=== PATIENT | female | born 1940 | race Caucasian/White ===

== ENCOUNTER 2018-09-09 19:39 | Observation (INO) | payer MEDICARE, BC ==
[~2018-09-09 19:39] MED LIST: Iopamidol 300 61% 100 ML VIAL FS ONE
[2018-09-09] MEDS ORDERED: Famotidine/PF 20 mg/2ml Vial ONE (20:22)
[2018-09-09] MEDS ORDERED: Ondansetron PF 4 MG/2 ML Vial ONE (20:22)
[2018-09-09 20:30] LABS: Base Excess-Venous 2.1 mmol/L (-2.0 to 3.0); Bicarbonate (HCO3v) 27.6 mmol/L (22.0-28.0); CO2 Tension (PvCO2) 44.5 mmHg (40.0-50.0); Calcium, Ionized 1.11 mmol/L (See Comments:); Chloride 93 mmol/L (98-107); Hemoglobin - Calc 17.5 g/dL (12.0-16.0); Potassium 4.2 mmol/L (3.5-5.1); Sodium 128 mmol/L (138-145); T. Carbon Dioxide 28.9 mmol/L (22.0-28.0); vO2 Saturation-calc 96.1 % (60.0-85.0)
[2018-09-09 20:32] LABS: ALT (SGPT) 18 U/L (8-55); AST (SGOT) 14 U/L (5-34); Albumin 4.4 g/dL (3.4-4.8); Alkaline Phosphatase 126 U/L (40-150); Anion Gap 21 mmol/L (10-20); BUN (Urea Nitrogen) 10 mg/dL (9.8-20.1); Bilirubin, Total 0.4 mg/dL (0.2-1.2); Calc. Creatinine Clearance 0 mL/min (70-130); Calcium 9.9 mg/dL (7.8-10.44); Carbon Dioxide 24 mmol/L (23-31); Chloride 89 mmol/L (98-107); Estimated GFR-MDRD 66; Globulin 3.4 g/dL (2.4-3.5); Glucose 492 mg/dL (83-110); Potassium 4.3 mmol/L (3.5-5.1); Protein, Total 7.8 g/dL (6.0-8.3); Sodium 130 mmol/L (136-145)
[2018-09-09 20:36] LABS: Bilirubin Moderate (Negative); Blood, Urine Negative (Negative); Clarity Slightly Cloudy (Clear); Glucose, Urine (Dipstick) >=1000 mg/dL (Negative); Leukocyte Negative (Negative); Nitrite Negative (Negative); Protein, Urine (Dipstick) Negative (Neg-Trace); Specific Gravity, Urine 1.029 (1.002-1.036); Urobilinogen 0.2 mg/dL (0.2-1.0); pH, Urine 5.5 (5.0-9.0)
[2018-09-09 20:42] LABS: Band 1 % (5-11); Eosinophils 3 % (0-10); Hemoglobin 16.3 g/dL (12.0-16.0); Lymphocytes 22 % (21-51); MDiff Complete? YES; Mean Corpuscular HGB CONC 35.4 g/dL (32.0-36.0); Mean Corpuscular Hemoglobin 30.5 pg (27.0-31.0); Mean Corpuscular Volume 86.2 fL (78.0-98.0); Mean Platelet Volume 6.5 fL (7.4-10.4); Monocytes 24 % (0-10); Neutrophil 50 % (42-75); Platelet Count 333 thou/uL (130-400); Platelet Morphology Comment Appears Adequate; RBC Distribution Width 11.6 % (11.5-14.5); Red Blood Cell (RBC) Count 5.35 mill/uL (4.20-5.40)
--- NOTE | 2018-09-09 21:00 | RAD ---
TWO VIEW CHEST: 09/09/18 HISTORY: Epigastric pain. No comparison. There is scattered nodular opacity seen throughout both lungs, more prominent in the upper lung field s bilaterally. There is a 3.5 cm nodular opacity in the right peripheral mid lung field which shows e vidence of cavitation with possible air fluid level. Heart size is normal. Vasculature normal. No effusion. Osseous structures are unremarkable. IMPRESSION: Bilateral pulmonary nodular opacities seen more prominent in the upper lung ziegler. A larger nodule i n the peripheral right mid lung appears to represent a cavitary mass with possible air fluid level. R ecommend further evaluation with chest CT. POS: SYED
[2018-09-09] MEDS ORDERED: Insulin Regular 300 UNITS/3 ML VIAL ONE (21:21)
--- NOTE | 2018-09-09 22:10 | CT ---
CT CHEST, ABDOMEN AND PELVIS WITH IV CONTRAST: 09/09/18 Multiple axial tomograms were obtained through the chest, abdomen and pelvis with IV enhancement. INDICATIONS: Follow-up chest x-ray which showed an atypical nodular infiltrate in both upper lobes with a larger cavitary nodule in the right lung. FINDINGS: CT again confirms numerous nodules in the upper lobes. These are more numerous in the right upper lob e and are too numerous to count. There is some reticular prominence indicating a reticulonodular proc ess possibly an typical infectious process. There is a large cavitary lesion in the right peripheral lung, right upper lobe abutting the fissure. This measures up to 3.3 cm. There is no evidence of air fluid level, which was questioned on the plain film. The lower lobes show a few scattered nodular opacities. Mediastinum unremarkable. IMPRESSION: Nodular infiltrative process in both upper lobes, more pronounced on the right. A large cavitary mass in the peripheral right lung. A few scattered nodular opacities in the lower lobes. TB and other gra nulomatous infection should be excluded. CT ABDOMEN AND PELVIS: Liver, spleen, and pancreas unremarkable. Adrenal glands and kidneys unremarkable. Small bowel loops normal caliber. Large amount of stool throughout the colon suggests constipation. Aorta normal caliber. Urinary bladd er unremarkable. IMPRESSION: Large amount of stool throughout the colon suggests chronic constipation. No evidence of acute intra- abdominal process. POS: YADIRA
[2018-09-10 00:13] VITALS: BMI 20.1
--- NOTE | 2018-09-10 00:27 | PDOC.FPRHP ---
- History of Present Illness Chief Complaint: Abdominal pain History of Present Illness: This is a 77 yo female with a pmh of IDDM, seizures who presents as a direct admit from [facility] for abdominal pain. The pain is epigastric with radiation to her back. She reports having the pain for 2 hours and went a way for a while but ultimately returned. She reports nausea with one episode of emesis. She denies SOB, diaphoresis, dysuria, weakness, or numbness. She reports weight loss of 100 lbs in the last year with a diagnosis of DM 6 months ago with an A1c of 13.6. She also reports right sided chest wall pain. She states it is primarily posterior mid chest. ED Course: Humulin 5.5 units IV push 2L bolus NS pepcid 20mg zofran - Allergies/Adverse Reactions Allergies Allergy/AdvReac Type Severity Reaction Status Date / Time No Known Allergies Allergy Verified 09/10/18 00:21 - Home Medications Medication Instructions Recorded Confirmed Type Insulin Glargine,Hum.Rec.Anlog 25 units SQ DAILY 09/10/18 09/10/18 History [Lantus] Phenytoin Sodium Extended 600 mg PO DAILY 09/10/18 09/10/18 History [Dilantin ER] - History PMHx: IDDM, seizures, PSHx: Appendectomy, cholecstecotmy FHx: none contributory Social: Denies EZEKIEL - Review of Systems General: reports: weight/appetite/sleep changes. denies: fever/chills, night sweats, fatigue Eyes: denies: eye pain, vision changes ENT: denies: nasal congestion, rhinorrhea Respiratory: denies: cough, shortness of breath, exercise intolerance Cardiovascular: reports: chest pain (on her right posterior rib cage). denies: palpitation, edema Gastrointestinal: reports: constipation. denies: nausea, vomiting, diarrhea, GI bleeding Genitourinary: reports: polyuria. denies: incontinence, dysuria Skin: denies: rashes, lesions Musculoskeletal: denies: pain, tenderness Neurological: denies: numbness, syncope, seizure Psychological: denies: anxiety, depression - Vital signs BP: 114/72 HR: 103 RR: 20 Tmax: 98.3 Pox: 94% on ra Wt: 56kg - Physical Exam Constitutional: NAD, awake, alert and oriented, other (cachetic) HEENT: normocephalic and atraumatic, PERRLA, EOMI, grossly normal vision, TM's clear and intact, grossly normal hearing, MMM Neck: FROM, trachea midline Chest: no-tender to palpation, no lesions Heart: RRR, normal S1/S2, no murmurs/rubs/gallops, pulses present Lungs: CTAB, no respiratory distress, good air movement, no wheezing, no retractions Abdomen: soft, bowel sounds present, no masses/distention -Abdomen: Tenderness to epigastic region Musculoskeletal: normal structure, normal tone, ROM grossly normal Neurological: CN II-XII intact, normal sensation Skin: good turgor, capillary refill <2 seconds Heme/Lymphatic: no unusual bruising or bleeding Psychiatric: normal mood and affect, intact recent and remote memory FMR H&P: Results - Labs Result Diagrams: 09/09/18 20:05 09/10/18 05:24 Lab results: WBC 9.0 thou/uL (4.8-10.8) 09/09/18 20:05 Hgb 16.3 g/dL (12.0-16.0) H 09/09/18 20:05 Hct 46.1 % (36.0-47.0) 09/09/18 20:05 MCV 86.2 fL (78.0-98.0) 09/09/18 20:05 Plt Count 333 thou/uL (130-400) 09/09/18 20:05 Band Neuts % (Manual) 1 % (5-11) L 09/09/18 20:05 VBG pCO2 44.5 mmHg (40.0-50.0) 09/09/18 20:05 VBG pO2 83.0 mmHg (35.0-45.0) H 09/09/18 20:05 Sodium 130 mmol/L (136-145) L 09/09/18 20:05 Potassium 4.3 mmol/L (3.5-5.1) 09/09/18 20:05 Chloride 89 mmol/L (98-107) L 09/09/18 20:05 Carbon Dioxide 24 mmol/L (23-31) 09/09/18 20:05 BUN 10 mg/dL (9.8-20.1) 09/09/18 20:05 Creatinine 0.84 mg/dL (0.6-1.1) 09/09/18 20:05 Glucose 492 mg/dL (83-110) H 09/09/18 20:05 Lactic Acid 0.9 mmol/L (0.5-2.2) 09/09/18 20:05 Calcium 9.9 mg/dL (7.8-10.44) 09/09/18 20:05 Total Bilirubin 0.4 mg/dL (0.2-1.2) 09/09/18 20:05 AST 14 U/L (5-34) 09/09/18 20:05 ALT 18 U/L (8-55) 09/09/18 20:05 Alkaline Phosphatase 126 U/L (40-150) 09/09/18 20:05 Serum Total Protein 7.8 g/dL (6.0-8.3) 09/09/18 20:05 Albumin 4.4 g/dL (3.4-4.8) 09/09/18 20:05 Lipase 15 U/L (8-78) 09/09/18 20:05 Urine Ketones 40 mg/dL (Negative) H 09/09/18 20:25 Urine Blood Negative (Negative) 09/09/18 20:25 Urine Nitrite Negative (Negative) 09/09/18 20:25 Ur Leukocyte Esterase Negative (Negative) 09/09/18 20:25 - Radiology Interpretation CT scan - chest Status: image reviewed by me, report reviewed by me (Nodular infiltrative process in both upper lobes, more pronounced on the right. A large cavitary mass in the peripheral right lung. A few scattered nodular opacities in the lower lobes. TB and other granulomatous infection should be excluded.) CT scan - abdomen Status: report reviewed by me (Large amount of stool throughout the colon suggests chronic constipation. No evidence of acute intra-abdominal process.) Chest x-ray Status: report reviewed by me (Bilateral pulmonary nodular opacities seen more prominent in the upper lung ziegler. A larger nodule in the peripheral right mid lung appears to represent a cavitary mass with possible air fluid level. Recommend further evaluation with chest CT) FMR H&P: A/P - Problem List (1) DM (diabetes mellitus) Current Visit: Yes Status: Acute Code(s): E11.9 - TYPE 2 DIABETES MELLITUS WITHOUT COMPLICATIONS (2) Hyponatremia Current Visit: Yes Status: Acute Code(s): E87.1 - HYPO-OSMOLALITY AND HYPONATREMIA (3) Concern about pulmonary TB without diagnosis Current Visit: Yes Status: Acute Code(s): Z71.1 - PERSON W FEARED HLTH COMPLAINT IN WHOM NO DIAGNOSIS IS MADE - Plan Diabetes Mellitus, late onset -Admit to medical -Pending A1c and C-peptide to further define diagnosis -Continue home levemir and titrate to BG 140-180 -ACHS glu checks -SSI Chest/abdominal pain -Lipase 15, troponin negative x1 -CT chest shows nodular inflitrative process in both upper lobes, more on the right. A large cavitary mass in the peripheral right lung. A few scattered nodular opacities in the lower lobes -Concerning for TB, Pending AFB culture and smear, quant gold -Consult pulmonology in the morning Protein-calorie malnutrition -100lbs weight loss in 1 year -Concerning for TB vs cancer vs new onset DM -Consult dietitian Pseudohyponatremia -Corrected to 136 Ketosis without change in pH or bicarb -Likely starvation ketosis -Supplement and IV hydrate Code: full Prophylaxis: SCDs Family: none at bedside Fluids: LR 100ml/hr Diet: CC Disposition: home in 1-2 days PCP: Deangelo RODRIGUEZ FMR H&P: Upper Level - Plan Date/Time: 09/10/18 0025 Fe Negron. Zander Mac MD, have evaluated this patient and agree with findings/plan as outlined by recording studio intern resident. Pertinent changes/additions are listed here. 77 y/o F w/ IDDM who was started on insulin approx. 6 months ago by her PCP in [place] presents as a direct admit from [facility]. Pt initially presented for eval of abdominal earlier today in her upper mid abdomen w/ radiation into her back w / associated nausea and emesis x1. Pt reported taking 25 units of lantus at home. Reports abdominal pain and nausea improved significantly after administration of meds at [facility]. Pt reports 100 lbs weight loss approx. 1 years ago before dx w/ DM. Reports A1c was [address] scan of patients chest /A/P obtained showing 3.3 cm R-peripheral lung cavitary lesion w/ numerous nodules in the upper lobes R>L. Was also found to have a large amount of stool throughout her colon suggestive of chronic constipation. Vitals per recording studio intern note WBC 9.0 Hgb 16.3 Monocytes 24% VBG 7.4/44.5/83/27.6 Na 130 Chl 89 Bicarb 24 Glucose 492 Beta hydroxybutyrate 3.46 CXR B/l pulmonary nodular opacities CT Chest/Abdomen/Pelvis 3.3 cm R-peripheral lung cavitary lesion w/ numerous nodules in the upper lobes R>L. Large amount of stool throughout the colon PE: Cachetic appearing, NAD Small 1 cm round callus medial aspect of plantar surface of L-foot Mild epigastric tenderness to palpation 77 y/o F w/: 1. Cavitary Lung Nodule (DDx TB vs malignancy vs other) - Pt w/ incidental finding of cavitary lung nodule on CT. She has not had any incarceration, known contacts, foreign travel which would put her at a higher risk for this - Will place in negative pressure room w/ droplet percautions - Obtain Quantiferon Gold and AFB sputum stain - Plan to consult pulmonology in the AM for further eval 2. Uncontrolled DM - Will restart patient on her home lantus w/ SSI and adjust as needed - Pt w/ significant weight loss and likely elevated B-hb from starvation ketoacidosis as her bicarb is >24 and with normal VBG. Do not feel this is true DKA at this time. - Will treat w/ sub-q insulin and repeat b-hb in the AM w/ q4 hr BMPs w/ IVF resuscitation - Strict I/Os to monitor fluid status - Pt did have significant weight loss prior to diabetes dx which would be unusual for a T2DM patient. Will check a c-peptide to further eval possible adult onset T1DM 3. Polycythemia - Possible 2/2 decreased volume status in setting of #2 - Will repeat in the AM after IVF, if still elevated will perform further work- up for etiology 4. Constipation - Will have patient on bowel regimen while inpatient 5. Other chronic medical problems per recording studio intern note Addendum - Attending - Attending Attestation Date/Time: 09/10/18 4020 I personally evaluated the patient and discussed the management with Dr. Mccarthy /Estefania. I agree with the History, Examination, Assessment and Plan documented above with any addition or exceptions noted below. Patient here with uncontrolled DM and large amount of weight loss with associated pleuritic type chest pain. She is cachectic appearing. Labs show severe hyperglycemia and ketosis without ketoacidosis. CT chest shows necrotic material R chest. Patient being admitted for necrotizing infection with need to rule out TB and/or malignancy, as well as uncontrolled DM. Pulm consultation. Will need escalation of DM therapy. IV hydration. Testing for TB and fungal causes of necrotic pneumonia.
[2018-09-10] MEDS ORDERED: HumaLOG 300 UNITS/3 ML VIAL SC PRN (01:32)
[2018-09-10] MEDS ORDERED: Dextrose 50% Abboject 50 ML SYRINGE SLOW IVP PRN (01:32)
[2018-09-10] MEDS ORDERED: Ondansetron PF 4 MG/2 ML Vial IVP PRN (01:32)
[2018-09-10] MEDS ORDERED: Dextrose 5% in Water 1,000 ML IV PRN (01:32)
[2018-09-10] MEDS ORDERED: Acetaminophen 650 MG Suppository PR PRN (01:32)
[2018-09-10] MEDS: Lactated Ringer's 1,000 ML IV SCH ×3 (02:55→19:46)
[2018-09-10] MEDS ORDERED: Insulin Glargine 25 UNITS in Pre-Filled Syringe 1 EACH SC SCH ×2 (03:00→09:00)
[2018-09-10] MEDS: Ondansetron ODT 4 MG TAB PO PRN ×2 (04:09→10:16)
[2018-09-10] MEDS: Acetaminophen 325 MG TAB PO PRN ×2 (04:09→18:34)
[2018-09-10] MEDS: HumaLOG 300 UNITS/3 ML VIAL SC PRN ×3 (05:43→17:28)
[2018-09-10 06:16] LABS: Anion Gap 13 mmol/L (10-20); BUN (Urea Nitrogen) 7 mg/dL (9.8-20.1); Calc. Creatinine Clearance 70 mL/min (70-130); Calcium 8.6 mg/dL (7.8-10.44); Carbon Dioxide 26 mmol/L (23-31); Chloride 97 mmol/L (98-107); Estimated GFR-MDRD Greater than 90; Glucose 271 mg/dL (83-110); Potassium 3.7 mmol/L (3.5-5.1); Sodium 132 mmol/L (136-145)
[2018-09-10] MEDS: Senokot 8.6 MG TAB PO SCH ×2 (07:58→19:44)
[2018-09-10] MEDS: Polyethylene Glycol 3350 17 GM Packet PO SCH (07:58)
[2018-09-10] MEDS ORDERED: Sodium Chloride 3% (15 ML) NEB NEB SCH (10:00)
--- NOTE | 2018-09-10 11:12 | CON ---
DATE OF CONSULTATION: 09/10/2018 SERVICE: Pulmonary Medicine. REASON FOR CONSULTATION: Cavitary lesion. HISTORY OF PRESENT ILLNESS: The patient is a 77-year-old white female with past medical history significant for over 250 pounds weight loss over a several year. She presented to the emergency department because of some abdominal discomfort. She denies any current fevers or chills. She is not having any night sweats. She denies having any cough or sputum production. She does not have any shortness of breath. The abdominal discomfort radiated into her back. It lasted for about 2 hours and ultimately went away before it came back once again. It was associated with nausea and one episode of vomiting. She did not vomit up any blood. She denies any arthralgias or vomiting. She has had a lack of appetite over these past several years. She denies having specific hyperphagia or polydipsia recently. PAST MEDICAL HISTORY: 1. Diabetes mellitus. 2. History of seizure disorder. PAST SURGICAL HISTORY: 1. Appendectomy. 2. Cholecystectomy. FAMILY HISTORY: Noncontributory. SOCIAL HISTORY: Negative for significant alcohol, tobacco, or illicit drug use. She denies any exposures to chemicals, dust, asbestos, or tuberculosis. ALLERGIES: NO KNOWN DRUG ALLERGIES. MEDICATIONS: List of her inpatient medications was reviewed. No specific updates were made at this time. REVIEW OF SYSTEMS: General; head, ears, eyes, nose, throat; cardiovascular; respiratory; GI; ; musculoskeletal; neurologic; and skin are negative except as mentioned in the HPI. PHYSICAL EXAMINATION: VITAL SIGNS: Afebrile, pulse 84, blood pressure 113/62, respirations 16, and saturation 93% on room air. GENERAL: The patient is awake and alert, in no apparent distress. LUNGS: Decent air entry. There is a minimally prolonged expiratory phase. Rhonchi are noted. No wheezing or crackles are appreciated. HEART: Normal rate and regular. ABDOMEN: Soft, nontender, and nondistended. Bowel sounds are positive. MUSCULOSKELETAL: No cyanosis or clubbing. There is no pitting in the bilateral lower extremities. NEUROLOGIC: Grossly nonfocal. LABORATORY DATA: WBC 9.0, hemoglobin 16.3, platelets 333,000. Neutrophil count is 50%, monocyte count is 24%, lymphocytes 22%. Eosinophils comprise 3% of the cell type. D-dimer is below the assay limit of 0.27. A pH 7.4, pCO2 of 45. Basic metabolic profile, troponin, ionized calcium, liver function studies are essentially unremarkable. Lipase is also normal. Lactate is negative x1. Hemoglobin A1c 17.0. IMAGING STUDIES: CT of the chest demonstrates chronic constipation without acute intra-abdominal process. No mediastinal lymphadenopathy is appreciated. She has a cavitary mass in the right upper lobe with tree-in-bud opacifications throughout. ASSESSMENT: 1. Cavitary mass. 2. Pulmonary infiltrate, characterized by tree-in-bud opacifications, predominantly bilateral upper lobes. 3. Profound weight loss. 4. Type 2 diabetes mellitus, under very poor control. DISCUSSION AND PLAN: Since she is not making any sputum, we will induce a sputum with 3% hypertonic saline and physiotherapy with a nebulized bronchodilator. If we cannot generate an acceptable sputum sample, we will move forward with bronchoscopy in the morning. I will make her n.p.o. after midnight in case we do not generate a good sputum sample. I agree with the isolation precautions. I will send off a rheumatoid factor, ANCA, and HIV. Pulmonary/Critical Care will continue to follow along. 70 minutes have been devoted to this patient in various activities. I personally reviewed all imaging studies and laboratory data noted within this document. For fifty percent of this time, I was interacting with the patient at the bedside or coordinating care with the care team. For the remainder of the time I was immediately available to the patient in the hospital unit. Job ID: [id number] MTDD
[2018-09-10 11:45] LABS: HIV (1/2) Antibody/Antigen Non-Reactive (NonReactive); HIV 1/2 INDEX 0.15 S/CO (<1.00)
[2018-09-11] MEDS ORDERED: Insulin Glargine 35 UNITS in Pre-Filled Syringe 1 EACH SC SCH (07:11)
--- NOTE | 2018-09-11 07:18 | PDOC.FM ---
- Subjective Subjective: pt sleeping comfortably in bed, denies SOB or CP. would like to go home - Objective Vital Signs & Weight: Vital Signs (12 hours) Temp Pulse Resp BP Pulse Ox 09/11/18 00:00 98.2 F 93 15 146/78 H 97 09/10/18 20:00 98.2 F 93 16 146/78 H 97 Weight Admit Weight 56.699 kg Weight 56.699 kg I&O: 09/10/18 09/11/18 09/12/18 06:59 06:59 06:59 Intake Total 517 Balance 517 Result Diagrams: 09/09/18 20:05 09/10/18 05:24 Phys Exam - Physical Examination Constitutional: NAD HEENT: moist MMs Neck: full ROM Respiratory: clear to auscultation bilateral Cardiovascular: RRR, no significant murmur Gastrointestinal: no distention Musculoskeletal: pulses present Neurological: moves all 4 limbs Psychiatric: normal affect Skin: no rash Dx/Plan (1) Malnourished Code(s): E46 - UNSPECIFIED PROTEIN-CALORIE MALNUTRITION Status: Acute (2) Concern about pulmonary TB without diagnosis Code(s): Z71.1 - PERSON W FEARED HLTH COMPLAINT IN WHOM NO DIAGNOSIS IS MADE Status: Acute (3) DM (diabetes mellitus) Code(s): E11.9 - TYPE 2 DIABETES MELLITUS WITHOUT COMPLICATIONS Status: Acute - Plan Plan: Uncontrolled DMII -Glucose in the 400s on admission, bicarb normal, HbA1c 17. -Increase Glargine to 35 considering 8u SS given -ACHS glu checks -SSI Cavitary lung lesion -CT chest shows nodular infiltrative process in both upper lobes, more on the right. A large cavitary mass in the peripheral right lung. A few scattered nodular opacities in the lower lobes -Concerning for TB vs fungal vs malignancy - Pending AFB culture and smear, quant gold - isolation precautions -Pulmonology consulted, appreciate recs - bronch today Protein-calorie malnutrition -100lbs weight loss in 1 year -Concerning for TB vs cancer vs new onset DM -Consult dietitian Pseudohyponatremia -Corrected to 136 Ketosis without change in pH or bicarb -Likely starvation ketosis -Supplement and IV hydrate Code: full Prophylaxis: SCDs PCP: Deangelo RODRIGUEZ Disposition: Bronch today, dc planning pending results Addendum - Attending - Attending Attestation Date/Time: 09/11/18918 I personally evaluated the patient and discussed the management with Dr. Lewis. I agree with the History, Examination, Assessment and Plan documented above with any addition or exceptions noted below. Patient here for cachexia , lung cavitary lesion, and uncontrolled DM. Blood sugars improved with escalation of insulin regimen. She is going for bronchoscopy today. She requests to go home but I advised her that we should wait on that decision until after the bronchoscopy and Pulm recommendations to which she agrees.
[2018-09-11] MEDS: Senokot 8.6 MG TAB PO SCH (07:45)
[2018-09-11] MEDS: Lactated Ringer's 1,000 ML IV SCH (07:45)
[2018-09-11] MEDS: Polyethylene Glycol 3350 17 GM Packet PO SCH (07:46)
[2018-09-11] MEDS: Ondansetron ODT 4 MG TAB PO PRN (08:27)
[2018-09-11] MEDS ORDERED: Fentanyl 100 MCG/2 ML VIAL ONE (12:42)
[2018-09-11] MEDS ORDERED: Lidocaine 1% PF 5 ML VIAL ONE (13:09)
[2018-09-11] MEDS ORDERED: PHENYLEPHRINE-NS 100 MCG/ML 10 ML SYRINGE ONE (13:09)
[2018-09-11] MEDS ORDERED: Glycopyrrolate 0.2 MG/ML 5 ML SYRINGE ONE (13:09)
[2018-09-11] MEDS ORDERED: Rocuronium Bromide 10 MG/ML (10ML VIAL) ONE (13:09)
[2018-09-11] MEDS ORDERED: Ondansetron PF 4 MG/2 ML Vial ONE (13:09)
[2018-09-11] MEDS ORDERED: PROPOFOL 200 MG/20 ML VIAL ONE (13:09)
--- NOTE | 2018-09-11 13:24 | PRG ---
DATE OF SERVICE: 09/11/2018 SERVICE: Pulmonary Medicine. INTERVAL HISTORY: The patient is doing really well from respiratory standpoint. She is breathing comfortably. She has no complaints of cough. We tried to induce some sputum yesterday, but we were completely unsuccessful even after inducing with 3% saline and physiotherapy. PHYSICAL EXAMINATION: VITAL SIGNS: Afebrile. Pulse 86, blood pressure 111/66, respirations 18, and saturation 93% on room air. GENERAL: The patient is awake and alert, in no apparent distress. LUNGS: Decent air entry. Minimal rhonchi are present. There is a prolonged expiratory phase, but I do not appreciate any wheezing. No crackles are appreciated. HEART: Normal rate, regular. ABDOMEN: Soft, nontender, and nondistended. Bowel sounds are positive. MUSCULOSKELETAL: No cyanosis or clubbing. No pitting in the bilateral lower extremities. NEUROLOGIC: Grossly nonfocal. LABORATORY DATA: Blood sugar ranges from 210 to 307. Hemoglobin A1c 17. Urinalysis is positive for glycosuria and ketonuria. Otherwise, it is negative. There is no significant red blood cells identified. HIV 1 and 2 are nonreactive. Blood cultures x2 are unremarkable. ASSESSMENT: 1. Pulmonary cavity. 2. Pulmonary infiltrate, characterized by tree-in-bud changes. 3. Profound weight loss, unexplained. 4. Type 2 diabetes mellitus, poor control. DISCUSSION AND PLAN: The patient is going to go down for a bronchoscopy today. After we collect her sample, she can be considered for discharge from the hospital. I will have her return to clinic in the outpatient setting in the next couple of weeks to review the pathology and the microbiology. At that time, we will consider doing formal pulmonary function studies, but I would like to exclude the possibility of infectious process first. Job ID: [id number] [facility]
[2018-09-11] MEDS ORDERED: Ondansetron HCl/PF 4 MG/2 ML Vial IVP PRN (14:26)
[2018-09-11] MEDS ORDERED: Promethazine HCl 25 MG/ML VIAL IM PRN (14:26)
[2018-09-11] MEDS ORDERED: Promethazine HCl 25 MG/ML VIAL SLOW IVP PRN (14:26)
[2018-09-11] MEDS: HumaLOG 300 UNITS/3 ML VIAL SC PRN (16:45)
[2018-09-11 17:19] VITALS: BP 110/66; TEMP 97.8
--- NOTE | 2018-09-11 22:05 | OP ---
DATE OF PROCEDURE: 09/11/2018 SERVICE: Pulmonary medicine. PROCEDURES: Fiberoptic bronchoscopy: a. Visual airway inspection. b. Endobronchial brush of the right upper lobe. c. Bronchoalveolar lavage of the right upper lobe. d. Transbronchial biopsies of the right upper lobe. PREPROCEDURE DIAGNOSES: 1. Pulmonary cavity. 2. Pulmonary infiltrate. POSTPROCEDURE DIAGNOSES: 1. Pulmonary cavity. 2. Pulmonary infiltrate. MEDICATIONS USED: For list of anesthesia provided, please refer to Anesthesia documentation. PREANESTHESIA ASSESSMENT: H and P had been performed. The patient's medications and allergies were reviewed. Informed consent was obtained after discussing the risks, benefits, and rationale for performing the procedure as well as alternative options. DESCRIPTION OF PROCEDURE: A time-out was performed identifying the correct procedure and patient with name and date of . A diagnostic fiberoptic bronchoscope was introduced through the existing endotracheal tube. The bronchoscope was advanced into the trachea, where a tracheobronchial tree inspection was carried out with clear identification of the right upper lobe, right middle lobe, right lower lobe, left upper lobe, lingula, and left lower lobe. Anatomy was normal to the segmental level. Endobronchial brushings were performed in the right upper lobe. A BAL was subsequently performed followed by fluoroscopically guided transbronchial biopsies. Hemostasis was verified and bronchoscope was subsequently removed from the patient. Postprocedure fluoroscopy did not demonstrate a pneumothorax. FINDINGS: 1. Cathy was sharp. 2. No endobronchial disease was identified. 3. Secretions were minimal, but quite thick, yellow, and purulent. SPECIMENS OBTAINED: 1. Pathology on BAL, brushings, and transbronchial biopsy. 2. Microbiology on BAL. COMPLICATIONS: None. ESTIMATED BLOOD LOSS: 5 mL. FLUOROSCOPY TIME: 3 minutes. DISPOSITION: The patient will return to her medical unit once she meets criteria in the postanesthesia care unit. If she remains stable for 2 hours, she could be a candidate for discharge from the hospital. I will follow up with her. I will have her return to clinic in 6 weeks in the outpatient setting, but if something is abnormal about our biopsy or culture between now and then, I will have her return to clinic sooner. Job ID: [id number] MTDD
[2018-09-14 13:07] LABS: CCP IgG Antibody 0.6 EliAU/mL (<7 Negative); EliA RAS New Method **** NEW METHOD ****; Rheumatoid Factor IgA Antibody 8.7 IU/mL (<14 Negative); Rheumatoid Factor IgM Antibody 0.6 IU/mL (<3.5 Negative)
[2018-09-15 17:10] LABS: Cytoplasmic (C-ANCA) <1:20 titer (Neg:<1:20); Myeloperoxidase AutoAbs <9.0 U/mL (0.0-9.0); Perinuclear (P-ANCA) <1:20 titer (Neg:<1:20); Proteinase-3 AutoAbs Less than 3.5 U/mL (0.0-3.5)
[2018-09-16 17:10] LABS: Fungus Stain Final report (.)
== END 2018-09-11 18:34 | disposition home or self-care (01) ==
LOC: SCSER 19:39 → T4-B 23:13
PROVIDERS: ADMIT Family Medicine; ATTEND Family Medicine
PROC: 0BBC8ZX Excision of Right Upper Lung Lobe, Via Natural or Artificial Opening Endoscopic, Diagnostic (ICD-10-PCS; principal; 2018-09-11)
PROC: 0BDC8ZX Extraction of Right Upper Lung Lobe, Via Natural or Artificial Opening Endoscopic, Diagnostic (ICD-10-PCS; 2018-09-11)
PROC: 0B5C8ZZ Destruction of Right Upper Lung Lobe, Via Natural or Artificial Opening Endoscopic (ICD-10-PCS; 2018-09-11)
DX: J85.0 Gangrene and necrosis of lung (principal); J98.4 Other disorders of lung; E11.9 Type 2 diabetes mellitus without complications; G40.909 Epilepsy, unspecified, not intractable, without status epilepticus; E87.1 Hypo-osmolality and hyponatremia; E86.0 Dehydration; E46 Unspecified protein-calorie malnutrition; Z68.20 Body mass index [BMI] 20.0-20.9, adult; Z79.4 Long term (current) use of insulin; Z79.899 Other long term (current) drug therapy
CPT/HCPCS: 31623; 31624; 31628; 71046; 71260; 74177; 80048; 80053; 81003; 82010; 82330; 82435; 82803; 82962 ×3; 83036; 83520; 83605; 83690; 84132; 84295; 84484; 84681; 85014; 85025; 85379; 86200; 86256; 87040; 87070; 87077; 87102; 87116; 87205; 87206 ×2; 87389; 88112; 88305; 88312; 88313; 89220; 93005; 94640 ×2; 96361; 96374; 96375; 97139 ×2; 99285; G0378 ×2; 36415; 36416; J1815; J1825; J2001; J2405; J2704; J3010; J7620; Q0162; Q9967; S0028

== ENCOUNTER 2019-01-21 15:56 | Outpatient (CLI) | payer MEDICARE, BC ==
[2019-01-21] MEDS ORDERED: Sodium Chloride 0.9% 15 ML NEB ONE (18:00)
--- NOTE | 2019-01-21 22:04 | HP ---
HISTORY OF PRESENT ILLNESS: Ms. Alejandro Horne is a very pleasant 78-year-old, who [facility] evaluation of a lesion of the plantar surface of the left forefoot, which has been present for approximately 3 months. The patient states that at an appointment with Dr. Falcon, the lesion was noted. The patient was subsequently referred to the [facility] for further evaluation and treatment. The patient has no other complaints today. She denies any fever or chills. The patient was referred to the [facility] on 12/10/2018. PAST MEDICAL HISTORY: 1. Diabetes mellitus. 2. History of seizures. PAST SURGICAL HISTORY: 1. Appendectomy. 2. Cholecystectomy. MEDICATIONS: 1. Levemir. 2. Regular insulin. 3. Amitriptyline. 4. Gabapentin. 5. P.o. antibiotics. ALLERGIES: NO KNOWN DIAGNOSED ALLERGIES. SOCIAL HISTORY: Social history is negative for tobacco use. The patient admits to only the occasional consumption of alcohol. FAMILY HISTORY: Family history is negative for diabetes mellitus or coronary artery disease. PHYSICAL EXAMINATION: VITAL SIGNS: Temperature 97.8, pulse 97, respirations 16, blood pressure 142/60, Accu-Chek 158. GENERAL: A 78-year-old female, sitting on stretcher in examination room, in no acute distress. HEENT: Normocephalic, atraumatic. NECK: No nuchal rigidity. CHEST: Clear to auscultation. CARDIOVASCULAR: Regular rate and rhythm. ABDOMEN: Soft. EXTREMITIES: An ulceration is present over the plantar surface of the left forefoot. The ulceration is located over the lateral aspect of the left forefoot. Nonviable tissue associated with the wound was debrided with an excisional partial thickness debridement with the use of scissors. No purulent drainage is associated with the wound. No erythema of the skin surrounding the wound is present. No maceration of the skin of the periwound is noted. No significant edema of the left foot is present on exam today. ASSESSMENT AND PLAN: 1. Ulceration of plantar surface of left forefoot over the lateral aspect of the left forefoot. Upon debridement of the eschar associated with the ulceration, the underlying skin is noted to be intact. Ms. Horne will be discharged from clinic today with followup on a p.r.n. basis. The patient states she will consider obtaining diabetic shoes with inserts once she is ambulating consistently. 2. Diabetes mellitus. The patient's Accu-Chek in clinic today is 158. 3. Seizure disorder. Job ID: [id number]
== END 2019-01-21 15:57 | disposition home or self-care (01) ==
LOC: WCC 15:56
PROVIDERS: ATTEND Family Medicine
DX: E11.621 Type 2 diabetes mellitus with foot ulcer (principal); L97.529 Non-pressure chronic ulcer of other part of left foot with unspecified severity; G40.909 Epilepsy, unspecified, not intractable, without status epilepticus
CPT/HCPCS: 97597; 99204; A4218; G0463